=== PATIENT | female | born 1960 | race Caucasian/White ===

== ENCOUNTER → 2017-02-20 | Outpatient (CLI) | payer OTHER ==
--- NOTE | 2017-02-20 09:28 | RAD ---
Lumbar spine, 3 views, 02/20/2017: History: Lumbar pain radiating down both legs The lumbar vertebral heights are well-maintained. There are mild scattered marginal spurs. There is mild disc space narrowing and endplate sclerosis at L2-3. There are moderate degenerative changes involving the facet joints bilaterally in the lower lumbar spine. No acute fracture or dislocation is identified. Aortoiliac calcific plaquing is noted. IMPRESSION: 1. Mild to moderate degenerative change as described above. 2. No acute bony abnormality is detected.
== END | disposition home or self-care (01) ==
LOC: DXRADRC 08:47
PROVIDERS: ATTEND Physician Assistant Medical
DX: M47.896 Other spondylosis, lumbar region (principal); I70.0 Atherosclerosis of aorta
CPT/HCPCS: 72100

== ENCOUNTER → 2017-07-29 | Outpatient (CLI) | payer OTHER ==
--- NOTE | 2017-07-29 10:04 | RAD ---
Lumbar spine, 3 views, 07/29/2017: History: Low back pain No fracture or dislocation is identified. There are moderate scattered marginal spurs. There is mild disc space narrowing at L2-3. There are moderate degenerative changes involving the facet joints bilaterally in the lower lumbar spine. Moderate aortic calcific plaquing is present. IMPRESSION: 1. Mild to moderate scattered degenerative changes. 2. No acute bony abnormality is detected.
== END | disposition home or self-care (01) ==
LOC: DXRAD 09:23
PROVIDERS: ATTEND Neurological Surgery
DX: M47.816 Spondylosis without myelopathy or radiculopathy, lumbar region (principal)
CPT/HCPCS: 72100

== ENCOUNTER → 2017-08-21 | Outpatient (CLI) | payer OTHER ==
--- NOTE | 2017-08-21 11:07 | RAD ---
Chest, 2 views, 08/21/2017: History: Dry cough Comparison is made to a study from 05/13/2016. The heart size and pulmonary vascularity are normal. No pulmonary infiltrate is seen. There is no evidence of pleural fluid. IMPRESSION: No acute cardiopulmonary abnormality is detected.
== END | disposition home or self-care (01) ==
LOC: DXRAD 08:59
PROVIDERS: ATTEND Physician Assistant Medical
DX: R05 Cough (principal)
CPT/HCPCS: 71046

== ENCOUNTER 2018-04-10 10:50 | Emergency (ER) | payer OTHER ==
[~2018-04-10] VITALS: Ht 162.6 cm; Wt 93.0 kg
--- NOTE | 2018-04-10 11:32 | RAD ---
Two-view chest 04/10/2018 CLINICAL INDICATION: Shortness of breath and weakness. COMPARISON: Chest 08/21/2017 FINDINGS: Cardiac and mediastinal silhouettes unremarkable. No pleural effusion or pneumothorax. Minimal right upper lung airspace opacities. IMPRESSION: Minimal right upper lung airspace opacities, indeterminate between infectious or inflammatory pneumonitis. Follow-up two-view chest is recommended to assess for resolution. Electronically signed by: Vadim Abrams MD (04/10/2018 11:29 AM) [facility]
--- NOTE | 2018-04-10 11:39 | PHYS DOC ---
Past History Past Medical History: Asthma, Depression, Diabetes, Hypertension Past Surgical History: Hysterectomy, Other Alcohol Use: Heavy Drug Use: None Adult General Chief Complaint Chief Complaint: FLU SYMPTOM HPI HPI 58-year-old female presents with 5 day history of cough, congestion. She presents today because she's felt a little bit more short of breath. She denies chest pain or diaphoresis. She thought she just coming down with a cold, but this feels worse than a cold. She has body aches and is taking ibuprofen and tylenol. She has had pneumonia once in the past. She has not had a fever at home. She has been using her albuterol nebulizer 1-2 times a day. She did have some blood-tinged sputum with coughing yesterday. Review of Systems Review of Systems Constitutional: Denies fever or chills [] Eyes: Denies change in visual acuity, redness, or eye pain [] HENT: nasal congestion with mild sore throat [] Respiratory: cough with shortness of breath [] Cardiovascular: No additional information not addressed in HPI [] GI: Denies abdominal pain, nausea, vomiting, bloody stools or diarrhea [] : Denies dysuria or hematuria [] Musculoskeletal: Denies back pain or joint pain [] Integument: Denies rash or skin lesions [] Neurologic: Denies headache, focal weakness or sensory changes [] Endocrine: Denies polyuria or polydipsia [] All other systems were reviewed and found to be within normal limits, except as documented in this note. Allergies Allergies Allergies Coded Allergies Type Severity Reaction Last Updated Verified erythromycin base Allergy Unknown 04/10/18 Yes Physical Exam Physical Exam Constitutional: Well developed, well nourished, no acute distress, non-toxic appearance. [] HENT: Normocephalic, atraumatic, bilateral external ears normal, oropharynx moist, no oral exudates, nose normal. Bilateral tympanic membranes normal[] Eyes: PERRLA, EOMI, conjunctiva normal, no discharge. [] Neck: Normal range of motion, no tenderness, supple, no stridor. [] Cardiovascular:Heart rate regular rhythm, no murmur [] Lungs & Thorax: Bilateral breath sounds clear to auscultation [] Abdomen: Bowel sounds normal, soft, no tenderness, no masses, no pulsatile masses. [] Skin: Warm, dry, no erythema, no rash. [] Back: No tenderness, no CVA tenderness. [] Extremities: No tenderness, no cyanosis, no clubbing, ROM intact, no edema. [] Neurologic: Alert and oriented X 3, normal motor function, normal sensory function, no focal deficits noted. [] Psychologic: Affect normal, judgement normal, mood normal. [] Current Patient Data Vital Signs Vital Signs Date Time Temp Pulse Resp B/P (MAP) Pulse Ox O2 Delivery O2 Flow Rate FiO2 04/10/18 10:55 97.6 88 20 95 Room Air EKG EKG [] Radiology/Procedures Radiology/Procedures [] Impressions: Two-view chest 04/10/2018 CLINICAL INDICATION: Shortness of breath and weakness. COMPARISON: Chest 08/21/2017 FINDINGS: Cardiac and mediastinal silhouettes unremarkable. No pleural effusion or pneumothorax. Minimal right upper lung airspace opacities. IMPRESSION: Minimal right upper lung airspace opacities, indeterminate between infectious or inflammatory pneumonitis. Follow-up two-view chest is recommended to assess for resolution. Electronically signed by: Melyssa Abrams MD (04/10/2018 11:29 AM) [facility] DICTATED AND SIGNED BY: MELYSSA ABRAMS MD DATE: 04/10/18 1128 CC: REZA SOLER DO; EDGAR BENNETT Course & Med Decision Making Course & Med Decision Making Pertinent Labs and Imaging studies reviewed. (See chart for details) The patient's chest x-ray did show some upper lobe findings. See official report for more details. Her influenza A and B were both positive. The patient has had symptoms for 5 days so antiviral therapy is not indicated. She likely has not had a fever because she has been taking Tylenol and ibuprofen for body aches. She has albuterol nebulizer at home. Her oxygen saturation has been normal in the ED. She feels comfortable with discharge to home and will return to the emergency room if her condition worsens. [] Dragon Disclaimer Dragon Disclaimer This electronic medical record was generated, in whole or in part, using a voice recognition dictation system. Departure Departure: Referrals: EDGAR BENNETT (PCP) REZA SOLER DO Apr 10, 2018 11:39
[2018-04-10] MEDS ORDERED: IPRATRPIUM/ALBUTEROL 0.5/2.5MG 3 ML NEBU. NEB ONE (12:30)
[2018-04-10 12:50] LABS: INFLUENZA A PATIENT POSITIVE (NEGATIVE); INFLUENZA B PATIENT POSITIVE (NEGATIVE)
[2018-04-10 12:59] VITALS: BP 150/95
== END 2018-04-10 13:06 | disposition home or self-care (01) ==
LOC: ER 10:50
DX: J09.X2 Influenza due to identified novel influenza A virus with other respiratory manifestations (principal); J10.1 Influenza due to other identified influenza virus with other respiratory manifestations; J45.909 Unspecified asthma, uncomplicated; E11.9 Type 2 diabetes mellitus without complications; I10 Essential (primary) hypertension; F32.9 Major depressive disorder, single episode, unspecified; F10.20 Alcohol dependence, uncomplicated; Z88.1 Allergy status to other antibiotic agents; Y90.9 Presence of alcohol in blood, level not specified
CPT/HCPCS: 71046; 87804; 94640; 99284; J7620

== ENCOUNTER → 2018-04-22 | Outpatient (CLI) | payer OTHER ==
[2018-04-10 12:59] VITALS: BP 150/95
--- NOTE | 2018-04-22 15:58 | RAD ---
Left leg venous Doppler study: Clinical indications: Left leg swelling and pain. Findings: Duplex sonography (including santiago scale evaluation and color flow and waveform spectral analysis) of the proximal aspect of the greater saphenous vein and the proximal aspect of the profunda femoral vein and the entire length of the common femoral and superficial femoral and popliteal veins and the tibioperoneal trunk and the proximal aspect of the posterior tibial and peroneal veins of the left leg was performed. Normal compressibility, augmentation of color Doppler flow after calf compression, and respiratory variation of Doppler flow is seen. Thus, there are no sonographic findings of deep venous thrombosis within these veins. Impression: There are no sonographic findings of deep venous thrombosis within the veins discussed above of the left lower extremity. Right leg venous Doppler study: Clinical indications: Right leg swelling and pain. Findings: Duplex sonography (including santiago scale evaluation and color flow and waveform spectral analysis) of the proximal aspect of the greater saphenous vein and proximal aspect of the profunda femoral vein and the entire length of the common femoral and superficial femoral and popliteal veins and the tibioperoneal trunk and the proximal aspect of the posterior tibial and peroneal veins of the right leg was performed. Normal compressibility, augmentation of color Doppler flow after calf compression, and respiratory variation of Doppler flow is seen. Thus, there are no sonographic findings of deep venous thrombosis within these veins. Impression: There are no sonographic findings of deep venous thrombosis within the veins discussed above of the right lower extremity. VENOUS REFLUX EVALUATION OF THE LOWER EXTREMITIES-BILATERAL EXAM Right leg: No evidence of reflux of the lesser saphenous vein or greater saphenous vein is seen. There is an anterior accessory saphenous vein without reflux. These veins are patent. No thigh perforators are seen. No calf perforators are seen. Left leg: No evidence reflux of the lesser saphenous vein is seen. There is 1.1 seconds of reflux of the proximal left greater saphenous vein near the origin. No evidence of reflux elsewhere within this vein. An anterior accessory saphenous vein is seen without reflux. These veins are patent. No thigh perforators are seen. No calf perforators are seen. IMPRESSION: Reflux is evident within the proximal left greater saphenous vein near the origin. Electronically signed by: Leonel Vasquez MD (04/22/2018 3:55 PM) [place] [id number]
--- NOTE | 2018-04-23 10:31 | RAD ---
DATE: 04/22/2018 EXAM: MAMMO ASROJ SCREENING BILATERAL HISTORY: Routine screening COMPARISON: 10/30/2015 This study was interpreted with the benefit of Computerized Aided Detection (CAD). Breast Density: HETERO The breast parenchyma is heterogenously dense, which could reduce sensitivity of mammography. Breast parenchyma level C. FINDINGS: 2-D and 3-D tomosynthesis imaging was performed in CC and MLO projections. No new or enlarging breast densities are seen. Benign type calcifications are present. No suspicious microcalcifications have developed. IMPRESSION: Stable mammograms without evidence of malignancy. BI-RADS CATEGORY: 2 BENIGN FINDING(S) RECOMMENDED FOLLOW-UP: 12M 12 MONTH FOLLOW-UP PQRS compliance statement: Patient information was entered into a reminder system with a target due date for the next mammogram. Mammography is a sensitive method for finding small breast cancers, but it does not detect them all and is not a substitute for careful clinical examination. A negative mammogram does not negate a clinically suspicious finding and should not result in delay in biopsying a clinically suspicious abnormality. "Our facility is accredited by the [employer] Mammography Program."
== END | disposition home or self-care (01) ==
LOC: MAMMO 08:25
PROVIDERS: ATTEND Nurse Practitioner
DX: Z12.31 Encounter for screening mammogram for malignant neoplasm of breast (principal); R60.0 Localized edema
CPT/HCPCS: 77063; 77067; 93970

== ENCOUNTER → 2018-12-29 | Outpatient (CLI) | payer SELFPAY ==
--- NOTE | 2018-12-29 09:11 | RAD ---
Chest radiograph 12/29/2018 12:00 AM INDICATION: Chest pain COMPARISON: April 10, 2018 TECHNIQUE: Frontal and lateral views of the chest are provided. FINDINGS: The cardiomediastinal silhouette is within normal limits. There are no pleural effusions. There is no pulmonary vascular congestion. There is no pneumothorax. Mild interstitial changes appear chronic. Patchy opacities are noted in the right upper lobe which may represent chronic scarring or superimposed infiltrate. No significant osseous abnormality is identified. IMPRESSION: Chronic interstitial changes with right upper lobe patchy airspace disease. Consideration may be given for chronic scarring as similar findings are identified on prior radiographs versus superimposed infiltrate. Electronically signed by: Radha Lockwood MD (12/29/2018 9:08 AM) [id number]
== END | disposition home or self-care (01) ==
LOC: DXRAD 08:28
PROVIDERS: ATTEND Physician Assistant Medical
DX: J98.4 Other disorders of lung (principal)
CPT/HCPCS: 71046

== ENCOUNTER → 2019-05-04 | Outpatient (CLI) | payer OTHER ==
--- NOTE | 2019-05-04 15:26 | RAD ---
Five-view cervical spine series Clinical indications: Neck pain FINDINGS: No acute fracture or lytic process or discitis or prevertebral soft tissue swelling is evident. Grade 1 anterolisthesis of C4-5 is seen. Facet arthropathy is evident at this level. There is degenerative disc space narrowing and endplate spurring at at C4-5 and C5-6. There is degenerative endplate spurring without disc space narrowing at C3-4 and C6-7. There is narrowing of the lower left neural foramina which may be due to positioning. No prevertebral soft tissue swelling is evident. IMPRESSION: Degenerative cervical spondylosis. Grade 1 anterolisthesis of C4-5. This may result in spinal canal stenosis. Incidental note is made of bilateral lung infiltrates within the upper lobes. This appears chronic based on chest x-ray on December 29, 2018. Electronically signed by: Leonel Vasquez MD (05/04/2019 3:23 PM) [facility]
== END | disposition home or self-care (01) ==
LOC: PMG 09:28
PROVIDERS: ATTEND Physician Assistant Medical
DX: M43.12 Spondylolisthesis, cervical region (principal); M12.88 Other specific arthropathies, not elsewhere classified, other specified site; M47.812 Spondylosis without myelopathy or radiculopathy, cervical region; R91.8 Other nonspecific abnormal finding of lung field
CPT/HCPCS: 72050

== ENCOUNTER → 2019-06-28 | Day surgery (SDC) | payer OTHER ==
[~2019-06-28] MED LIST: ALBU2.5V8 INH; ALBUTEROL SULFATE 2.5 MG/3 ML NEBU. NEB PRN; ASPI-630 PO; ATEN25TA42 PO; ATOR20TA58 PO; ATROPINE 0.5 MG/5 ML DISP.SYRIN. IV PRN; BUDE10.2 IH; CHOL400T6 PO; CITA40TA5 PO; CYAN50008 PO; DEXT20TA2 PO; HYDR-2769 PO; HYDR12.58 PO; IV RINGERS SOLUTION,LACTATED 1,000 ML IV SCH; LORA10CA PO; LOSA50TA86 PO; METF-550 PO; METF-551 PO; MONT10TA80 PO; OMEP20CA16 PO; ONDANSETRON PF 4 MG/2 ML VIAL. IV PRN; PHENOL ORAL SPRAY 177ML BOTTLE. MM PRN; PROPOFOL 40 ML IV ONE; diphenhydrAMINE 50 MG/ML VIAL IV PRN
[2019-06-28 10:35] VITALS: BP 99/68
== END ==
LOC: SURG 08:24
PROVIDERS: ATTEND Internal Medicine Gastroenterology
DX: R19.4 Change in bowel habit (principal); K57.30 Diverticulosis of large intestine without perforation or abscess without bleeding; Z80.0 Family history of malignant neoplasm of digestive organs; Z86.010 Personal history of colon polyps; Z88.1 Allergy status to other antibiotic agents; Z88.8 Allergy status to other drugs, medicaments and biological substances
CPT/HCPCS: 45378; J2704; J7120

== ENCOUNTER → 2019-11-24 | Outpatient (CLI) | payer OTHER ==
[2019-06-28 10:35] VITALS: BP 99/68
[~2019-11-24] MED LIST changes: -ALBUTEROL SULFATE 2.5 MG/3 ML NEBU. NEB PRN; -ATROPINE 0.5 MG/5 ML DISP.SYRIN. IV PRN; -IV RINGERS SOLUTION,LACTATED 1,000 ML IV SCH; -ONDANSETRON PF 4 MG/2 ML VIAL. IV PRN; -PHENOL ORAL SPRAY 177ML BOTTLE. MM PRN; -PROPOFOL 40 ML IV ONE; -diphenhydrAMINE 50 MG/ML VIAL IV PRN
--- NOTE | 2019-11-24 09:44 | RAD ---
EXAM: Bilateral lower extremity venous Doppler. HISTORY: Bilateral lower extremity pain/swelling. COMPARISON: None. FINDINGS: Grayscale and Doppler analysis of the both lower extremity deep venous systems was performed with graded compression and augmentation. The common femoral, greater saphenous, superficial femoral, popliteal and calf veins were assessed. There is no evidence of deep venous thrombosis. IMPRESSION: 1. No evidence of deep venous thrombosis. Electronically signed by: Lilly Perez MD (11/24/2019 9:41 AM) [id number]
== END ==
LOC: US 08:50
PROVIDERS: ATTEND Physician Assistant Medical
DX: R60.9 Edema, unspecified (principal); M79.605 Pain in left leg; M79.604 Pain in right leg
CPT/HCPCS: 93970

== ENCOUNTER → 2020-01-16 | Outpatient (CLI) | payer OTHER ==
[2019-06-28 10:35] VITALS: BP 99/68
--- NOTE | 2020-01-16 17:16 | RAD ---
CT chest without contrast: Reason for examination: Productive cough for years. 30+ years smoking history. Asthma/COPD. Helical images were obtained through the chest with no contrast administered. Reconstruction was performed in sagittal and coronal planes. Exposure: One or more of the following individualized dose reduction techniques were utilized for this examination: 1. Automated exposure control 2. Adjustment of the mA and/or kV according to patient size 3. Use of iterative reconstruction technique. No abnormality seen at the thyroid gland. The trachea and mainstem bronchi show no intraluminal lesions. No abnormality seen at the esophagus. The thoracic aorta shows some arteriosclerotic calcification. The heart size is normal with no pericardial effusion. Lung an show patchy groundglass changes in the upper lobes bilaterally and there are small emphysematous bulla present. There is a 1.6 cm focus of infiltrates or nodule at the right lower lobe posteriorly (series 2, image 160). No other infiltrates or nodules are seen. No pleural effusions or pneumothorax are seen. No focal abnormalities are seen at the portions of the liver, spleen or adrenal glands visualized. No acute bony abnormality is seen. IMPRESSION: Mild hazy groundglass density in the upper lobes bilaterally with small emphysematous bulla. Small 1.6 m focus of infiltrate or nodule in the right lower lobe posteriorly. Recommend clinical correlation and follow-up. Electronically signed by: Wen Guido MD (01/16/2020 5:13 PM) [facility]
== END | disposition home or self-care (01) ==
LOC: CT 10:56
PROVIDERS: ATTEND Physician Assistant Medical
DX: J43.8 Other emphysema (principal); I70.0 Atherosclerosis of aorta
CPT/HCPCS: 71250

== ENCOUNTER → 2020-06-18 | Outpatient (CLI) | payer OTHER ==
[2019-06-28 10:35] VITALS: BP 99/68
[~2020-06-18] MED LIST changes: -METF-550 PO; -METF-551 PO; +METF-638 PO; +METF-639 PO
--- NOTE | 2020-06-19 08:21 | RAD ---
PQRS Compliance Statement: One or more of the following individualized dose reduction techniques were utilized for this examinat ion: 1. Automated exposure control 2. Adjustment of the mA and/or kV according to patient size 3. Use of iterative reconstruction technique CT THORAX WO Clinical Indication: Reason: LUNG NODULE / Comparison: CT chest without contrast, January 16, 2020. TECHNIQUE: Helical CT imaging of the chest is performed without IV contrast. Findings: The thyroid is symmetric. There is no axillary adenopathy. Mild mediastinal adenopathy is unchanged. Limited evaluation of the sara without IV contrast. The pulmonary trunk is dilated measuring up to 3. 7 cm. There is coronary artery disease. There is ectasia of the ascending thoracic aorta, diameter 3. 8 cm. Cardiac size is normal, no pericardial effusion. There is no pleural effusion. The central airways are patent. There is moderate upper lobe centrilobu lar emphysema. There is new groundglass and reticular opacity in the posterior right upper lobe. Grou ndglass nodule in the posterior right lower lobe is unchanged, image 159. Reticular opacities in the superior segment of the right lower lobe are unchanged. There is a new soft tissue density nodule in the left upper lobe measuring 6 x 5 mm, image 63. The visualized upper abdomen is unremarkable. There is segmentation anomaly with a rudimentary disc space of T2-T3. There is grade 1 anterolisthesi s of T3 on T4. IMPRESSION: 1. Irregular groundglass nodule in the posterior right lower lobe is unchanged and may be due to sca rring. There are upper lobe predominant chronic interstitial changes. Moderate centrilobular emphysem a. 2. There is a new noncalcified solid nodule in the left upper lobe measuring [address] foll ow-up. 3. Mild mediastinal adenopathy is unchanged. 4. Pulmonary trunk is dilated suggesting pulmonary arterial hypertension. Electronically signed by: Hany Moraes MD (06/19/2020 8:19 AM) [id number]
== END ==
LOC: CT 09:28
PROVIDERS: ATTEND Internal Medicine Critical Care Medicine
DX: J43.2 Centrilobular emphysema (principal); I77.810 Thoracic aortic ectasia; R91.1 Solitary pulmonary nodule; J98.4 Other disorders of lung; I25.10 Atherosclerotic heart disease of native coronary artery without angina pectoris
CPT/HCPCS: 71250

== ENCOUNTER → 2020-07-05 | Outpatient (CLI) | payer OTHER ==
[2019-06-28 10:35] VITALS: BP 99/68
[2020-07-05 13:38] LABS: BASO % 0 % (0-3); EOS # 0.2 x10^3/uL (0.0-0.7); EOS % 2 % (0-3); HEMATOCRIT 40.8 % (36.0-47.0); HEMOGLOBIN 13.4 g/dL (12.0-15.5); LYMPH # 1.9 x10^3/uL (1.0-4.8); LYMPH % 24 % (24-48); MEAN CORPUSCULAR HEMOGLOBIN 29 pg (25-35); MEAN CORPUSCULAR HGB CONC 33 g/dL (31-37); MEAN CORPUSCULAR VOLUME 89 fL (79-100); MONO # 0.6 x10^3/uL (0.0-1.1); MONO % 8 % (0-9); NEUT # 5.1 x10^3uL (1.8-7.7); NEUT % 66 % (31-73); PLATELET COUNT 116 x10^3/uL (140-400); RED CELL DISTRIBUTION WIDTH 14.9 % (11.5-14.5); WHITE BLOOD COUNT 7.8 x10^3/uL (4.0-11.0)
[2020-07-05 13:50] LABS: ALBUMIN 3.7 g/dL (3.4-5.0); ALBUMIN/GLOBULIN RATIO 0.9 (1.0-1.7); CALCIUM 9.2 mg/dL (8.5-10.1); CREATININE 0.7 mg/dL (0.6-1.0); GFR 85.1; TOTAL BILIRUBIN 0.3 mg/dL (0.2-1.0)
== END ==
LOC: LAB 11:54
PROVIDERS: ATTEND Neurological Surgery
DX: M51.36 Other intervertebral disc degeneration, lumbar region (principal); M48.061 Spinal stenosis, lumbar region without neurogenic claudication; M47.816 Spondylosis without myelopathy or radiculopathy, lumbar region; M43.17 Spondylolisthesis, lumbosacral region
CPT/HCPCS: 36415; 80053; 85025

== ENCOUNTER 2020-08-18 01:14 | Emergency (ER) | payer MEDICARE, OTHER ==
[~2020-08-18] VITALS: Ht 162.6 cm; Wt 82.7 kg
--- NOTE | 2020-08-18 01:18 | PHYS DOC ---
Past History Past Medical History: Anxiety, Arthritis, Asthma, Bronchitis, COPD, Depression, Diabetes, Hypertension, Sciatica, UTI Past Surgical History: Hysterectomy, Lumbar Laminectomy, Other Smoking: Quit Greater Than 1 Year Alcohol Use: Heavy Drug Use: None General Adult HPI: HPI: ".. I was at the doctor office today...[facility] for a follow up of my back surgery 07/25.. at [place]... I did have a UTI there and some urosepsis... They felt it because I never... Got a UTI completely treated... But they said I might have a UTI today... But tonight felt like maybe I had a fever ...".." I also had a blood clott.. in my lungs. and pneumonia.. ,.. so I also on Xarelto... Now too..." Patient is a 60 year old female who presents with above hx and complaints of dysuria, malaise, fever, chills, and arthralgia. Patient had lumbar laminectomy with fixation on July 25 at [place]. Patient was discharged home on the after the laminectomy after a couple days. Patient returned to [place] on the and diagnosed with urosepsis, pneumonia, pulmonary embolism and urinary tract infection. Patient was then admitted from to the at that time she required pressor to maintain blood pressure. Patient discharged on the and followed up with [facility] today and at that time is felt that maybe she may have a recurrent UTI. No antibiotics started at that time. The urine was sent for culture. Since seeing rash today patient developed fever ,chills, malaise, hypotension, and tachycardia. Pt. follows with [facility] for primary care. Patient was last admitted at [place] under . Patient states she still has some sciatica. Has had some leg cramps and left leg. Patient has been compliant with all her meds including Xarelto. Patient is accompanied with her daughter. Patient denies any recent travel. No specific ill contacts. No history immunosuppression. Patient lumbar laminectomy scar appears to be well- healed and no inflammation. Patient has past medical history significant for asthma, chronic bronchitis, COPD/emphysema, O2 dependent at 2 L nasal cannula, depression, diabetes, hypertension, pneumonia, UTIs, urosepsis, pulmonary embolism, and anxiety. Review of Systems: Review of Systems: Constitutional: History of fever or chills Eyes: Denies change in visual acuity HENT: Denies nasal congestion or sore throat Respiratory: History of a nonproductive cough . Cardiovascular: Denies chest pain or edema GI: Denies abdominal pain, nausea, vomiting, bloody stools or diarrhea : Denies dysuria Musculoskeletal: History of chronic back pain and joint pain Integument: Denies rash Neurologic: Denies headache, focal weakness or sensory changes Endocrine: Denies polyuria or polydipsia Lymphatic: Denies swollen glands Psychiatric: History of depression and anxiety Family History: Family History: Noncontributory to presentation Current Medications: Current Meds: See nursing for home meds Allergies: Allergies: Allergies Coded Allergies Type Severity Reaction Last Updated Verified erythromycin base Allergy Unknown 04/10/18 Yes Physical Exam: PE: Constitutional: acute distress, ill in appearance. [] HENT: Normocephalic, atraumatic, bilateral external ears normal, oropharynx moist, no oral exudates, nose normal. [] Eyes: PERRLA, EOMI, conjunctiva normal, no discharge. [] Neck: Normal range of motion, no tenderness, supple, no stridor. [] Cardiovascular: Tachycardia heart rate regular rhythm, no murmur, PMI to the left Lungs & Thorax: Bilateral breath sounds equal apex with few scattered wheezes some bibasilar crackles on auscultation [] Abdomen: Bowel sounds normal, soft, no tenderness, liver edge, no pulsatile masses. Obese. Pannus. Skin: Warm, dry, no erythema, no rash. Poor turgor Back: No tenderness, no CVA tenderness. Healing lumbar laminectomy scar-no signs of infection or inflammation Extremities: No tenderness, no cyanosis, no clubbing, ROM intact, bilateral edema. [] Piero complains of left calf cramping. No cording appreciated Neurologic: Alert and oriented X 3, moves all extremities on request, does have distal sensory,, no gross focal deficits noted, daughter says patient mentation is at baseline Psychologic: Affect anxious, judgement normal, mood normal. [] EKG: EKG: My interpretation EKG shows a sinus tachycardia 100 bpm. No findings of acute STEMI [] Radiology/Procedures: Radiology/Procedures: [address] [address] IMAGING REPORT Signed PATIENT: TORITO URIARTE ACCOUNT: [id number] : 1960 LOCATION: ER AGE: 60 SEX: F EXAM STATUS: REG ER ORD. PHYSICIAN: REYNALDO KRAUS MD REASON: post central line placement PROCEDURE: CHEST AP ONLY XR CHEST 1V Clinical Indication: Reason: post central line placement Comparison: Two-view chest, prior day. Findings: There is right IJ central line, tip at superior atriocaval junction. The cardiomediastinal silhouette is normal. Diffuse interstitial opacities are unchanged. There is no pneumothorax. No pleural effusion is appreciated. No acute bone abnormality. IMPRESSION: Right IJ central line tip at superior atrial caval junction. Electronically signed by: Hany Moraes MD (08/18/2020 5:14 AM) [facility]ANEL[facility] DICTATED AND SIGNED BY: HANY MORAES MD DATE: 08/18/20512 CC: REYNALDO KRAUS MD; EDGAR BENNETT PA ~MTH0 0 [][address] [place] [id number] IMAGING REPORT Signed PATIENT: TORITO URIARTE ACCOUNT: [id number] : 1960 LOCATION: ER AGE: 60 SEX: F EXAM STATUS: REG ER ORD. PHYSICIAN: REYNALDO KRAUS MD REASON: fever, copd PROCEDURE: CHEST PA & LATERAL XR CHEST 2V History: Reason: fever, copd / Comparison: Two-view chest December 29, 2018. Findings: The cardiomediastinal silhouette is normal. Interstitial opacities are nearly identical to the prior study and probably represent chronic interstitial changes. No acute airspace disease is identified. No pleural effusion or pneumothorax is seen. There is no acute bone abnormality. IMPRESSION: Probable chronic interstitial changes, stable to prior study. Electronically signed by: Hany Moraes MD (08/18/2020 4:04 AM) [facility] DICTATED AND SIGNED BY: HANY MORAES MD DATE: 08/18/20402 CC: REYNALDO KRAUS MD; EDGAR BENNETT ~MTH0 0 Heart Score: C/O Chest Pain: N/A HEART Score for Chest Pain: HEART Score for Chest Pain Response (Comments) Value History Moderately Suspicious 1 ECG Nonspecific Repolarizatio 1 Age >45 - < 65 1 Risk Factors 1 or 2 Risk Factors 1 Troponin < Normal Limit 0 Total 4 Risk Factors: Risk Factors: DM, Current or recent (<one month) smoker, HTN, HLP, family history of CAD, obesity. Risk Scores: Score 0 - 3: 2.5% MACE over next 6 weeks - Discharge Home Score 4 - 6: 20.3% MACE over next 6 weeks - Admit for Clinical Observation Score 7 - 10: 72.7% MACE over next 6 weeks - Early Invasive Strategies Course & Med Decision Making: Course & Med Decision Making Pertinent Labs and Imaging studies reviewed. (See chart for details) Concern for Sirs/ Sepsis- tachycardia, hypotension, Bands 29, and elevated lactic acid 3.9 . . Discussed hx., presentation, testing and tx. plan with Dr. Del Cid. Advised he would not admit her at this time.. Advised to send her home on oral antibiotics. 4:00 Family very concerned and wished to be transfer to [facility]- Discussed presentation, hx., testing, and tx. plan with Dr. Lucrecia Phelps at [place]- she has agreed to accept pt.at [place]. Procedure note: Central line placement-frequent IV draws, pressors, persistent hypotension after 2 L of fluid and low map. Discussed risk and benefits both patient and daughter. Patient daughter stated she had a central before when she needed pressors with last admission. Were aware of the risks excessive bleeding in anticoagulated patient, infection, pneumothorax etc. The right IJ . Prepped with prep swab-use of sterile technique, hat mask gloves gown, draping. Patient placed in Trendelenburg position. Received total lidocaine at sites of 6 cc both subclavian and IJ. Right IJ cannulated and central line passed over wire. Return of venous blood all 3 ports. Line sutured in place with Biopatch and OpSite. OpSite replaced after x-ray. No obvious pneumothorax noted on x-ray post procedure. Levophed started through central line and IV fluids. Critical care time 90 minutes-excluding procedures Impression: 1. UTI 2. Fever and Chills 3. Elevated Lactic Acid 3.9 4. Hx PE- on Xarelto 5. Hx. Lumbar laminectomy and fixation- 6. Hx Pneumonia 7. Hx laminectomy on July 25 8. Hx. of sepsis with UTI on readmission July 31- August 07 9. Suspect SIRS/ Sepsis [] Dragon Disclaimer: Dragon Disclaimer: This electronic medical record was generated, in whole or in part, using a voice recognition dictation system. Departure Departure: Referrals: EDGAR BENNETT (PCP) [place] Disclaimer This chart was dictated in whole or in part using Voice Recognition software in a busy, high-work load, and often noisy Emergency Department environment. It may contain unintended and wholly unrecognized errors or omissions. Dragon Disclaimer This chart was dictated in whole or in part using Voice Recognition software in a busy, high-work load, and often noisy Emergency Department environment. It may contain unintended and wholly unrecognized errors or omissions. REYNALDO KRAUS MD Aug 18, 2020 01:18
[2020-08-18] MEDS ORDERED: IV RINGERS SOLUTION,LACTATED 1,000 ML IV SCH (01:45)
--- NOTE | 2020-08-18 02:08 | EKG ---
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
[2020-08-18 02:32] LABS: BACTERIA,URINE FEW /HPF (0-FEW); BILIRUBIN,URINE NEG (NEG); CLARITY,URINE HAZY; COLOR,URINE YELLOW; GLUCOSE,URINE NEG (NEG); NITRITE,URINE NEG (NEG); RBC,URINE 0 /HPF (0-2); SQUAMOUS EPITHELIAL CELL,UR FEW /LPF; UROBILINOGEN,URINE 0.2 mg/dL (0.2 mg/dL)
[2020-08-18 02:39] LABS: GFR 56.4; POTASSIUM 3.3 mmol/L (3.5-5.1)
[2020-08-18] MEDS ORDERED: ALBU2.5V14 NEB (02:53)
[2020-08-18] MEDS ORDERED: CYCL-331 PO (02:53)
[2020-08-18] MEDS ORDERED: ALPR0.5T6 PO (02:53)
[2020-08-18] MEDS ORDERED: LEVO5TAB29 PO (03:02)
[2020-08-18] MEDS ORDERED: DICL50TA4 PO (03:02)
[2020-08-18] MEDS ORDERED: FLUT16SP21 NS (03:02)
[2020-08-18] MEDS ORDERED: METF10007 PO (03:02)
[2020-08-18] MEDS ORDERED: FLUT1BLS15 IH (03:02)
[2020-08-18] MEDS ORDERED: medrol dose pack (03:02)
[2020-08-18] MEDS ORDERED: IBUP800T19 PO (03:02)
[2020-08-18] MEDS ORDERED: MELO15TA6 PO (03:02)
[2020-08-18] MEDS ORDERED: HYDR-2145 PO (03:02)
[2020-08-18] MEDS ORDERED: cefTRIAXone SODIUM 1 GM VIAL ONE (03:06)
[2020-08-18] MEDS ORDERED: IV NORMAL SALINE 50ML 50 ML ONE (03:06)
[2020-08-18 03:15] LABS: BASO % 0 % (0-3); EOS % 1 % (0-3); HEMATOCRIT 35.5 % (36.0-47.0); HEMOGLOBIN 11.5 g/dL (12.0-15.5); LYMPH # 0.1 x10^3/uL (1.0-4.8); LYMPH % 4 % (24-48); MEAN CORPUSCULAR HEMOGLOBIN 28 pg (25-35); MEAN CORPUSCULAR HGB CONC 33 g/dL (31-37); MEAN CORPUSCULAR VOLUME 86 fL (79-100); MONO # 0.1 x10^3/uL (0.0-1.1); MONO % 2 % (0-9); NEUT # 3.5 x10^3uL (1.8-7.7); NEUT % 94 % (31-73); PLATELET COUNT 148 x10^3/uL (140-400); RED BLOOD COUNT 4.12 x10^6/uL (3.50-5.40); RED CELL DISTRIBUTION WIDTH 14.2 % (11.5-14.5); WHITE BLOOD COUNT 3.7 x10^3/uL (4.0-11.0)
[2020-08-18] MEDS ORDERED: KETOROLAC 30 MG/ML VIAL. IVP ONE (03:45)
[2020-08-18] MEDS ORDERED: MORPHINE SULFATE 10 MG/ML SYRINGE. SQ ONE (03:45)
[2020-08-18] MEDS ORDERED: MORPHINE SULFATE 10 MG/ML SYRINGE. ONE (03:47)
[2020-08-18] MEDS ORDERED: LORazepam 1 MG TABLET ONE (03:47)
[2020-08-18 03:55] LABS: % ATYL 1 % (0-0); % BANDS 29 % (0-9); % LYMPHS 4 % (24-48); % SEGS 66 % (35-66); NUCLEATED RBC 0; PLT ESTIMATE ADEQUATE (ADEQUATE)
[2020-08-18] MEDS ORDERED: LORazepam 1 MG TABLET PO ONE (04:00)
--- NOTE | 2020-08-18 04:06 | RAD ---
XR CHEST 2V History: Reason: fever, copd / Comparison: Two-view chest December 29, 2018. Findings: The cardiomediastinal silhouette is normal. Interstitial opacities are nearly identical to the prior study and probably represent chronic interstitial changes. No acute airspace disease is identified. N o pleural effusion or pneumothorax is seen. There is no acute bone abnormality. IMPRESSION: Probable chronic interstitial changes, stable to prior study. Electronically signed by: Hany Moraes MD (08/18/2020 4:04 AM) [facility]
[2020-08-18] MEDS ORDERED: IV RINGERS SOLUTION,LACTATED 1,000 ML IV ONE ×2 (04:15→05:00)
[2020-08-18 04:50] VITALS: BP 72/44
[2020-08-18] MEDS ORDERED: VANCOMYCIN 1 GM VIAL. ONE (05:00)
[2020-08-18] MEDS ORDERED: VANCOMYCIN 1 GM in IV NORMAL SALINE 250ML 250 ML IV ONE (05:00)
[2020-08-18] MEDS ORDERED: NOREPINEPHRINE BITARTRATE 8 MG in IV DEXTROSE 5% 250 ML IV PRN ×2 (05:00→10:00)
[2020-08-18] MEDS ORDERED: IV NORMAL SALINE 250ML 250 ML ONE ×2 (05:00→05:08)
[2020-08-18] MEDS ORDERED: NOREPINEPHRINE BITARTRATE 4 MG/4 ML VIAL. IV ONE (05:05)
[2020-08-18] MEDS ORDERED: IV DEXTROSE 5% 250 ML IV ONE (05:07)
[2020-08-18] MEDS ORDERED: NOREPINEPHRINE BITARTRATE 8 MG in IV NORMAL SALINE 250ML 250 ML IV PRN (05:15)
--- NOTE | 2020-08-18 05:17 | RAD ---
XR CHEST 1V Clinical Indication: Reason: post central line placement Comparison: Two-view chest, prior day. Findings: There is right IJ central line, tip at superior atriocaval junction. The cardiomediastinal silhouette is normal. Diffuse interstitial opacities are unchanged. There is no pneumothorax. No pleural effusi on is appreciated. No acute bone abnormality. IMPRESSION: Right IJ central line tip at superior atrial caval junction. Electronically signed by: Hany Moraes MD (08/18/2020 5:14 AM) [facility]
[2020-08-18 05:22] LABS: INFLUENZA A PATIENT NEGATIVE (NEGATIVE); INFLUENZA B PATIENT NEGATIVE (NEGATIVE)
== END 2020-08-18 06:30 | disposition short-term general hospital (02) ==
LOC: ER 01:14
DX: N39.0 Urinary tract infection, site not specified (principal); Z20.822 Contact with and (suspected) exposure to COVID-19; R50.9 Fever, unspecified; R74.02 Elevation of levels of lactic acid dehydrogenase [LDH]; Z86.711 Personal history of pulmonary embolism; Z79.01 Long term (current) use of anticoagulants; J44.9 Chronic obstructive pulmonary disease, unspecified; E11.9 Type 2 diabetes mellitus without complications; I10 Essential (primary) hypertension; Z87.891 Personal history of nicotine dependence; Z88.1 Allergy status to other antibiotic agents
CPT/HCPCS: 36415; 71045; 71046; 80048; 81001; 83605; 85007; 85025; 87040; 87077; 87086; 87186; 87804; 93005; 96361; 96365; 96367; 96368; 96372; 96375; 99291; 99292; C9803; J0696; J1885; J2270; J3370; J7050; J7120; U0003; U0005; 99285-25

== ENCOUNTER 2020-09-15 10:27 | Inpatient (IN) | payer OTHER ==
[~2020-09-15] VITALS: Ht 162.6 cm; Wt 79.5 kg
[~2020-09-15 10:27] MED LIST changes: +ALBU2.5V14 NEB; +ALPR0.5T6 PO; +CYCL-331 PO; +DICL50TA4 PO; +FLUT16SP21 NS; +FLUT1BLS15 IH; +HYDR-2145 PO; +IBUP800T19 PO; +LEVO5TAB29 PO; +MELO15TA6 PO; +METF10007 PO; +medrol dose pack
--- NOTE | 2020-09-15 10:51 | PHYS DOC ---
Past History Past Medical History: Anxiety, Arthritis, Asthma, Bronchitis, COPD, Depression, Diabetes, Hypertension, Sciatica, UTI Additional Past Medical Histor: shingles; PE; lumbar stenosis; spondy losis;sepsis Past Surgical History: Hysterectomy, Lumbar Laminectomy, Other Additional Past Surgical Histo: lumbar fusion Smoking: Quit Greater Than 1 Year Alcohol Use: Heavy Drug Use: None General Adult EDM: Chief Complaint: MULTIPLE COMPLAINTS HPI: HPI: 60 yo F past medical history of lumbar fusion in July 2020, complicated PE on Xarelto, COPD, arthritis, and SAWYER w/cpap at night, presents to the ed with complaints of generalized weakness and shortness of breath stating she felt like this when she was discharged from [facility], was admitted for sepsis. Reports she is currently taking Augmentin but does not know why. Patient states her symptoms do not typically resemble her COPD. Was around her daughter the day before her daughter was admitted to [facility], 1 week ago for viral pneumonia (unsure if daughter had Covid). Patient reports history of Covid in March 2020 and has not been vaccinated due to medical reasons. Low back surgery in July was complicated by sepsis with pneumonia and pulmonary emboli. Patient is compliant with her Xarelto but was discharged from [facility] on August 22, s/p sepsis 2/2 UTI (was usually seen in [facility] emergency department and started on Levophed). Hx given from pt and from reviewed [facility] medical records. Review of Systems: Review of Systems: Constitutional: Denies fever or chills Eyes: Denies change in visual acuity HENT: Denies nasal congestion or sore throat Respiratory: Denies cough or shortness of breath Cardiovascular: Denies chest pain or edema GI: Denies abdominal pain, nausea, vomiting, bloody stools or diarrhea : Denies dysuria Musculoskeletal: Denies back pain or joint pain Integument: Denies rash Neurologic: Denies headache, focal weakness or sensory changes Endocrine: Denies polyuria or polydipsia Lymphatic: Denies swollen glands Psychiatric: Denies depression or anxiety Current Medications: Current Meds: Current Medications Medications (Trade) Dose Ordered Sig/Cristy Start Time Stop Time Status Last Admin Dose Admin Piperacillin Sod/ Tazobactam Sod 4.5 gm/Sodium Chloride 50 ml @ 100 mls/hr 1X ONCE 09/15/20 11:00 09/15/20 11:29 UNV Sodium Chloride 1,000 ml @ 1,000 mls/hr 1X ONCE 09/15/20 11:00 09/15/20 11:59 UNV Vancomycin HCl (Vanco Per Pharmacy) 1 each PRN DAILY PRN 09/15/20 11:00 UNV Allergies: Allergies: Allergies Coded Allergies Type Severity Reaction Last Updated Verified erythromycin base Allergy Unknown 08/18/20 Yes levofloxacin Adverse Reaction Intermediate nausea, vomiting, diarrhea 08/18/20 Yes nitrofurantoin Adverse Reaction Intermediate n/v/d 08/18/20 Yes Physical Exam: PE: Constitutional: Well developed, well nourished, no acute distress, non-toxic appearance. HENT: Normocephalic, atraumatic, Eyes: EOMI, conjunctiva normal, no discharge. Neck: Normal range of motion, supple, Cardiovascular: S1/2 present, regular rhythm Lungs & Thorax: Speaking in full sentences, bilateral equal chest rise, no tachypnea or increased work of breathing, on 5L NC Abdomen: soft, no tenderness, Skin: Warm, dry, no erythema, no rash. [] Back: No tenderness, no CVA tenderness. [] Extremities: No tenderness, no cyanosis, no lower extremity edema Neurologic: Alert and oriented X 3, normal motor function, normal sensory function, no focal deficits noted. [] Psychologic: Affect normal, judgement normal, mood normal. [] EKG: EKG: [] Sinus tachycardia 103 bpm, no axis deviation, prolonged QTC 492, no T wave inversions, no ST elevations or ST depressions Radiology/Procedures: Radiology/Procedures: IMAGING REPORT Signed PATIENT: TORITO URIARTE ACCOUNT: [id number] : 1960 LOCATION: ER AGE: 60 SEX: F EXAM STATUS: REG ER ORD. PHYSICIAN: EDGAR MOYER DO REASON: soa PROCEDURE: PORTABLE CHEST 1V Exam Date: 09/15/2020 10:54 AM XR CHEST 1V Indication: Reason: soa / Spl. Instructions: / History: Comparison: August 18, 2020 FINDINGS/ IMPRESSION: The cardiac silhouette is unchanged. Prominent interstitial markings are seen bilaterally suggesting interstitial edema. Bibasilar edema, atelectasis, and/or infiltrates are noted. No appreciable pleural effusion or pneumothorax. Electronically signed by: Husam Tolliver MD (09/15/2020 11:15 AM) [id number] DICTATED AND SIGNED BY: HUSAM TOLLIVER MD DATE: 09/15/20 1112 CC: EDGAR BENNETT; EDGAR MOYER DO ~MTH0 0 IMAGING REPORT Signed PATIENT: TORITO URIARTE ACCOUNT: [id number] : 1960 LOCATION: ER AGE: 60 SEX: F EXAM STATUS: REG ER ORD. PHYSICIAN: EDGAR MOYER DO REASON: soa, r/o pe PROCEDURE: CT ANGIOGRAPHY CHEST CTA Chest with contrast: Clinical History: Reason: soa, r/o pe / Spl. Instructions: OMNI 350 98ML IV, GFR>60 / History: Shortness of breath. Axial helical images of the chest were obtained after the administration of 98 cc of IV Omni 350 and timed appropriately for a pulmonary arterial study. Conventional axial reconstruction was performed in addition to coronal, sagittal and bilateral oblique MIP (maximum intensity projection). This study was ordered to detect possible pulmonary embolism. There are no filling defects to suggest pulmonary embolism. There is diffuse emphysematous changes throughout the lungs. There is patchy mixed interstitial and airspace disease posteriorly in the lungs bilaterally. There is a 11 mm pulmonary nodule left upper lobe abutting the pleura laterally. There are multiple mildly enlarged mediastinal and hilar lymph nodes. The spleen is mildly enlarged. The thoracic aorta appears normal. Impression: 1. No evidence of pulmonary embolism. 2. Mixed interstitial and airspace disease posteriorly. This has increased considerably since June 18, 2020 CT. This could be secondary to atypical pneumonia. 3. Mild to moderate worsening lymphadenopathy. Consider sarcoidosis. 1. Mild splenomegaly seen previously. End impression PQRS Compliance Statement: One or more of the following individualized dose reduction techniques were utilized for this examination: 1. Automated exposure control 2. Adjustment of the mA and/or kV according to patient size 3. Use of iterative reconstruction technique Electronically signed by: Leandro Austin III, MD (09/15/2020 1:44 PM) [facility] DICTATED AND SIGNED BY: LEANDRO AUSTIN III, MD DATE: 09/15/20 1338 CC: EDGAR BENNETT; EDGAR MOYER DO ~MTH0 0 Heart Score: C/O Chest Pain: No Risk Factors: Risk Factors: DM, Current or recent (<one month) smoker, HTN, HLP, family history of CAD, obesity. Risk Scores: Score 0 - 3: 2.5% MACE over next 6 weeks - Discharge Home Score 4 - 6: 20.3% MACE over next 6 weeks - Admit for Clinical Observation Score 7 - 10: 72.7% MACE over next 6 weeks - Early Invasive Strategies Course & Med Decision Making: Course & Med Decision Making Pertinent Labs and Imaging studies reviewed. (See chart for details) COVID-19 CRITERIA: The patient was evaluated during the global COVID-19 pandemic, and that diagnosis was suspected/considered upon their initial presentation. Their evaluation, treatment and testing was consistent with current guidelines for patients who present with complaints or symptoms that may be related to COVID-19. Concern for hypoxia in the setting of atypical pneumonia vs mild interstitial edema, no further PE on CTA. Covid test pending. Patient was started on broad- spectrum antibiotics. Will admit for further medical management. Patient stable time of admission and agrees with this plan, accepted by Dr. Del Cid. Patient may benefit from echocardiogram. Large stack of medical records were faxed over from [facility]-patient is unsure if she had echocardiogram there. I have spoken with the patient and/or caregivers. I have explained the patient's condition, diagnosis and treatment plan based on the information available to me at this time. I have answered the patient's and/or caregivers questions and answered any concerns. The patient and/or caregivers have as good an understanding of the patient's diagnosis, condition and treatment plan as can be expected at this point. The patient has been stabilized within the capability of the emergency department. The patient will be transported for further care and management or will be moved to an observation or inpatient service. I have communicated with the staff or medical practitioner taking over this patient's care. Dragon Disclaimer: Dragon Disclaimer: This electronic medical record was generated, in whole or in part, using a voice recognition dictation system. Departure Departure: Impression: Primary Impression: Dyspnea Additional Impressions: Hypoxemia requiring supplemental oxygen Person under investigation for COVID-19 Atypical pneumonia Disposition: 09 ADMITTED INPATIENT Admitting Physician: Monico Del Cid Condition: STABLE Referrals: EDGAR BENNETT (PCP) EDGAR MOYER DO September 15, 2020 10:51
[2020-09-15] MEDS ORDERED: VANCOMYCIN PER PHARMACY MC PRN (11:00)
[2020-09-15] MEDS ORDERED: IV NORMAL SALINE 1,000ML 1,000 ML IV ONE ×2 (11:00)
[2020-09-15] MEDS ORDERED: PIPERACILLIN/TAZOBACTAM 4.5 GM in IV NORMAL SALINE 50ML 50 ML IV ONE (11:00)
[2020-09-15] MEDS ORDERED: ACETAMINOPHEN 325 MG TABLET PO ONE (11:00)
[2020-09-15] MEDS ORDERED: PIPERACILLIN/TAZOBACTAM 4.5 GM VIAL IV ONE (11:06)
[2020-09-15] MEDS ORDERED: IV NORMAL SALINE 50ML 50 ML ONE (11:06)
[2020-09-15 11:07] LABS: BASO % 0 % (0-3); EOS # 0.1 x10^3/uL (0.0-0.7); EOS % 1 % (0-3); HEMATOCRIT 26.4 % (36.0-47.0); HEMOGLOBIN 8.4 g/dL (12.0-15.5); LYMPH # 0.3 x10^3/uL (1.0-4.8); LYMPH % 3 % (24-48); MEAN CORPUSCULAR HEMOGLOBIN 26 pg (25-35); MEAN CORPUSCULAR HGB CONC 32 g/dL (31-37); MEAN CORPUSCULAR VOLUME 81 fL (79-100); MONO # 0.5 x10^3/uL (0.0-1.1); MONO % 4 % (0-9); NEUT # 9.8 x10^3uL (1.8-7.7); NEUT % 92 % (31-73); PLATELET COUNT 112 x10^3/uL (140-400); RED BLOOD COUNT 3.24 x10^6/uL (3.50-5.40); RED CELL DISTRIBUTION WIDTH 15.1 % (11.5-14.5); WHITE BLOOD COUNT 10.7 x10^3/uL (4.0-11.0)
--- NOTE | 2020-09-15 11:18 | RAD ---
Exam Date: 09/15/2020 10:54 AM XR CHEST 1V Indication: Reason: soa / Spl. Instructions: / History: Comparison: August 18, 2020 FINDINGS/ IMPRESSION: The cardiac silhouette is unchanged. Prominent interstitial markings are seen bilaterally suggesting interstitial edema. Bibasilar edema, atelectasis, and/or infiltrates are noted. No appreciable pleura l effusion or pneumothorax. Electronically signed by: Tad Tolliver MD (09/15/2020 11:15 AM) [id number]
[2020-09-15 11:19] LABS: CALCIUM 8.5 mg/dL (8.5-10.1); CREATININE 0.9 mg/dL (0.6-1.0); GFR 63.7; POTASSIUM 3.4 mmol/L (3.5-5.1)
[2020-09-15] MEDS ORDERED: VANCOMYCIN 2 GM in IV NORMAL SALINE 500ML 500 ML IV ONE (11:30)
[2020-09-15 11:32] LABS: ALBUMIN 3.2 g/dL (3.4-5.0); ALBUMIN/GLOBULIN RATIO 0.7 (1.0-1.7); MAGNESIUM 1.4 mg/dL (1.8-2.4); TOTAL BILIRUBIN 0.8 mg/dL (0.2-1.0); TOTAL PROTEIN 7.6 g/dL (6.4-8.2)
[2020-09-15 12:11] LABS: INFLUENZA A PATIENT NEGATIVE (NEGATIVE); INFLUENZA B PATIENT NEGATIVE (NEGATIVE)
[2020-09-15] MEDS ORDERED: MAGNESIUM SULFATE 2GM 50 ML IV ONE (12:15)
--- NOTE | 2020-09-15 12:19 | EKG ---
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
[2020-09-15] MEDS ORDERED: IOHEXOL 350 MG/ML 100 ML VIAL. IV ONE (12:30)
[2020-09-15 13:11] LABS: COLOR,URINE YELLOW
[2020-09-15 13:12] LABS: BACTERIA,URINE 0 /HPF (0-FEW); BILIRUBIN,URINE NEG (NEG); CLARITY,URINE CLEAR; GLUCOSE,URINE NEG (NEG); NITRITE,URINE NEG (NEG); RBC,URINE 0 /HPF (0-2); SQUAMOUS EPITHELIAL CELL,UR MOD /LPF; UROBILINOGEN,URINE 0.2 mg/dL (0.2 mg/dL)
--- NOTE | 2020-09-15 13:46 | RAD ---
CTA Chest with contrast: Clinical History: Reason: soa, r/o pe / Spl. Instructions: OMNI 350 98ML IV, GFR>60 / History: Short ness of breath. Axial helical images of the chest were obtained after the administration of 98 cc of IV Omni 350 and timed appropriately for a pulmonary arterial study. Conventional axial reconstruction was performed in addition to coronal, sagittal and bilateral oblique MIP (maximum intensity projection). This stud y was ordered to detect possible pulmonary embolism. There are no filling defects to suggest pulmonary embolism. There is diffuse emphysematous changes throughout the lungs. There is patchy mixed interstitial and a irspace disease posteriorly in the lungs bilaterally. There is a 11 mm pulmonary nodule left upper lo be abutting the pleura laterally. There are multiple mildly enlarged mediastinal and hilar lymph nodes. The spleen is mildly enlarged. The thoracic aorta appears normal. Impression: 1. No evidence of pulmonary embolism. 2. Mixed interstitial and airspace disease posteriorly. This has increased considerably since 2020 CT. This could be secondary to atypical pneumonia. 3. Mild to moderate worsening lymphadenopathy. Consider sarcoidosis. 1. Mild splenomegaly seen previously. End impression PQRS Compliance Statement: One or more of the following individualized dose reduction techniques were utilized for this examinat ion: 1. Automated exposure control 2. Adjustment of the mA and/or kV according to patient size 3. Use of iterative reconstruction technique Electronically signed by: En Charles III, MD (09/15/2020 1:44 PM) [facility]
[2020-09-15] MEDS ORDERED: DEXAMETHASONE SOD PHOS 10 MG/ML VIAL. IV ONE (16:30)
--- NOTE | 2020-09-15 17:47 | NUR ---
The patient, TORITO URIARTE, 60 y/o, F admitted by RONNIE ARAYA MD, was given written information regarding hospital policies, unit procedures and contact persons. Valuables were checked and VS taken.
[2020-09-15] MEDS ORDERED: PANT20TA58 PO (18:23)
[2020-09-15] MEDS ORDERED: METH-559 PO (18:23)
[2020-09-15] MEDS ORDERED: L.AC1CAP6 PO (18:23)
[2020-09-15 18:45] VITALS: BP 110/75
[2020-09-15 19:00] VITALS: BP 97/68
--- NOTE | 2020-09-15 20:08 | NUR ---
Spoke to Dr. Del Cid regarding home medications and O2 goal; stated to keep SpO2 equal/greater than 89% and titrate O2 accordingly. Other orders as noted in EMAR.
[2020-09-15] MEDS ORDERED: ALBUTEROL SULFATE 2.5 MG/3 ML NEBU. NEB PRN (20:15)
[2020-09-15] MEDS: MONTELUKAST 10 MG TABLET. PO SCH (21:04)
[2020-09-15] MEDS: metFORMIN 500 MG TABLET PO SCH (21:05)
[2020-09-15] MEDS: METHOCARBAMOL 500 MG TABLET PO SCH (21:05)
[2020-09-15 22:26] VITALS: BP 100/65
[2020-09-15] MEDS: HYDROcodone/APAP 10/325 1 TAB TABLET PO PRN (22:40)
[2020-09-15] MEDS ORDERED: RIVA20TA2 PO (23:05)
[2020-09-15] MEDS ORDERED: FURO-69 PO (23:07)
--- NOTE | 2020-09-16 01:44 | NUR ---
Upon assessment of pt, lower RLE noted to be edematous, warm, and tender to touch. Pt c/o intermittent pain in calf on dorsiflexion. Pt stated she takes xarelto that was not on previous medication list. notified; restarted xarelto. No further orders at this time.
[2020-09-16 06:00] VITALS: BP 106/65
[2020-09-16] MEDS: RIVAROXABAN 10 MG TABLET. PO SCH (08:25)
[2020-09-16] MEDS: PANTOPRAZOLE 40 MG TABLET. PO SCH (08:25)
[2020-09-16] MEDS: LACTOBACILLUS RHAMNOSUS GG 1 CAPSULE. PO SCH (08:25)
[2020-09-16] MEDS: metFORMIN 500 MG TABLET PO SCH ×2 (08:25→16:48)
[2020-09-16] MEDS: ATENOLOL 25 MG TABLET PO SCH (08:26)
[2020-09-16] MEDS: CITALOPRAM 20 MG TABLET. PO SCH (08:26)
[2020-09-16] MEDS: FLUTICASONE 50MCG/NASAL SPRAY 16GM BOTTLE. NS SCH (08:26)
[2020-09-16] MEDS: HYDROcodone/APAP 10/325 1 TAB TABLET PO PRN (08:37)
[2020-09-16 11:28] VITALS: BP 120/77
--- NOTE | 2020-09-16 12:29 | HP ---
ADMIT DATE: 09/15/2020 ATTENDING PHYSICIAN: Dr. Del Cid. CHIEF COMPLAINT: Shortness of breath. HISTORY OF PRESENT ILLNESS: The patient is a 60-year-old female admitted with a 2-day history of increasing shortness of breath. She already has supplemental oxygen at night. She had been a heavy smoker up to last summer. She presented to the ED. She has had a dry nonproductive cough. No fever per se. She has not had any recent COVID exposure. A swab is pending. Influenzas were negative. CT of the chest showed no evidence of blood clot; however, she does have posterior basilar infiltrates with a reactive lymph node adenopathy. She is admitted with atypical pneumonia and acute on chronic respiratory failure. Her oxygen saturations were marginal on room air and she required 3 liters to maintain a saturation. PAST MEDICAL HISTORY: Significant for type 2 diabetes, COPD. She had back surgery 2 months ago. Since that time, she had 2 recent hospitalizations with urinary tract infection leading to sepsis syndrome. She was hospitalized at [facility]. She also has type 2 diabetes along with gastroesophageal reflux disease and sinus congestion. CURRENT MEDICATIONS: Include alprazolam, atenolol, Lipitor, Celexa, fluticasone, furosemide, hydrochlorothiazide, hydrocodone, ibuprofen, lactobacillus, metformin, methocarbamol, Singulair, Protonix, and Xarelto. Evidently, she had a DVT associated to a recent hospitalization. She has been on Xarelto for the last several months. FAMILY HISTORY: Noncontributory. SOCIAL HISTORY: She is retired. Her children are grown. No COVID exposure. REVIEW OF SYSTEMS: All other systems reviewed and turned to be negative. PHYSICAL EXAMINATION: When I saw her: GENERAL: This is a pleasant, middle-aged female. INITIAL VITAL SIGNS: Showed a blood pressure of 106/65, her pulse was 98 and regular, temperature 99.0 degrees Fahrenheit, oxygen saturation 92% on 3 liters by nasal cannula. HEENT: Head is without trauma. Pupils are reactive. Sclerae nonicteric. Oropharynx clear. NECK: Supple. No stridor. CARDIOVASCULAR: Showed regular heart tones. No gallop. LUNGS: Bibasilar rales. ABDOMEN: Soft, scaphoid, nontender. EXTREMITIES: Showed 1+ edema. NEUROLOGIC: Focally intact. SKIN: Warm and dry. LABORATORY DATA: Hemoglobin is 8.4 g/dL with a white count of 10,700. Electrolytes unremarkable. Creatinine was 0.9 mg percent. Nonfasting blood sugar 124. BNP was 1400. Cardiac enzymes negative. ASSESSMENT: 1. This 60-year-old female who has atypical pneumonia involving interstitial anatomy of posterior bases of lungs. 2. Acute on chronic respiratory failure requiring more supplemental oxygen. 3. Chronic obstructive pulmonary disease with extensive emphysema. 4. Reactive adenopathy seen on CT scan. 5. Type 2 diabetes. 6. Anemia of chronic disease. 7. Recent back surgery with other hospitalizations for infection. PLAN: 1. Admit to the inpatient unit. 2. Await coronavirus swab. 3. Influenza swab has been negative. 4. Continue empiric Rocephin. 5. Continue some home meds. 6. I will hold off corticosteroids now due to her diabetes and recent infection. 7. Reassurance. 8. Home meds reviewed and simplified. LUDWIG DR: Jessica TID: [id number] CC: RUTH CRAIG
[2020-09-16] MEDS: CETIRIZINE HCL 10 MG TABLET PO SCH (12:54)
[2020-09-16] MEDS: PSEUDOEPHEDRINE 30 MG TABLET. PO SCH ×2 (12:54→20:20)
[2020-09-16] MEDS: ALPRAZolam 0.5 MG TABLET PO PRN ×2 (12:55→21:22)
[2020-09-16 15:50] VITALS: BP 135/87
--- NOTE | 2020-09-16 17:44 | NUR ---
NURSING NOTE PT WAS IN BED THIS AM UPON ASSESSMENT AND MEDICATION ADMINISTRATION. PT A&O. PT C/O HEADACHE AND REQUEST FOR ADDITIONAL SINUS MEDICATION. DR ARAYA ORDER FOR ZYRTEC AND SUDAFED. PT BP LOW, HELD ATENOLOL. TITRATING OXYGEN DOWN TOLERATED PER DR ARAYA TO KEEP O2 ABOVE 90%. PT CURRENTLY ON 1L AT 92%. NIKKO SANCHEZ
[2020-09-16 19:40] VITALS: BP 177/106
[2020-09-16] MEDS: METHOCARBAMOL 500 MG TABLET PO SCH (20:20)
[2020-09-16] MEDS: MONTELUKAST 10 MG TABLET. PO SCH (20:20)
[2020-09-16 23:20] VITALS: BP 134/81
[2020-09-17] MEDS: HYDROcodone/APAP 10/325 1 TAB TABLET PO PRN (05:33)
[2020-09-17 06:08] VITALS: BP 142/85
[2020-09-17] MEDS: metFORMIN 500 MG TABLET PO SCH (08:35)
[2020-09-17] MEDS: PSEUDOEPHEDRINE 30 MG TABLET. PO SCH (08:35)
[2020-09-17] MEDS: CITALOPRAM 20 MG TABLET. PO SCH (08:35)
[2020-09-17] MEDS: LACTOBACILLUS RHAMNOSUS GG 1 CAPSULE. PO SCH (08:35)
[2020-09-17] MEDS: CETIRIZINE HCL 10 MG TABLET PO SCH (08:35)
[2020-09-17] MEDS: PANTOPRAZOLE 40 MG TABLET. PO SCH (08:35)
[2020-09-17] MEDS: RIVAROXABAN 10 MG TABLET. PO SCH (08:35)
[2020-09-17 08:36] VITALS: BP 142/85
[2020-09-17] MEDS: FLUTICASONE 50MCG/NASAL SPRAY 16GM BOTTLE. NS SCH (08:36)
[2020-09-17] MEDS: ATENOLOL 25 MG TABLET PO SCH (08:36)
--- NOTE | 2020-09-17 12:41 | NUR ---
DISCHARGE NOTE Pt discharged today by Dr. Del Cid. Pt verbalized understanding of discharge paperwork and prescriptions. All questions addressed. CC Pt escorted out of hospital via WC by DIRECTOR PAID MED[employer] and entered vehicle with . GCS 15 and VSS upon DC. CC, RN
--- NOTE | 2020-09-17 19:10 | DS ---
DATE OF DISCHARGE: 09/17/2020 ATTENDING PHYSICIAN: Dr. Del Cid. FINAL DISCHARGE DIAGNOSES: 1. Atypical pneumonia, interstitial pneumonia posterior bases of lung. 2. Acute on chronic respiratory failure. 3. Chronic obstructive pulmonary disease. 4. Type 2 diabetes. 5. Anemia of chronic disease. 6. Recent back surgery with hospitalization. HISTORY OF PRESENT ILLNESS: The patient is a 60-year-old female with multiple medical issues. She has had recurrent pulmonary symptoms. She has been referred to see Dr. Vasquez at [place]. She presented with increasing cough, shortness of breath and CT evidence of atypical infiltrate in the posterior bases. PHYSICAL EXAMINATION: Please see the dictated note. PERTINENT LABORATORY AND X-RAY STUDIES: CT of the chest as noted. Hemoglobin 8.4 g, white count 10,700. Nonfasting blood sugar 129. Serology was negative for coronavirus and negative for influenza A and B. Electrolytes; potassium is 3.4 mEq, sodium 135, creatinine 0.9 mg/dL. COURSE IN HOSPITAL: The patient was admitted. She was treated with 3 days of intravenous Rocephin, nebulizer therapy, supplemental oxygen, which was weaned down to her baseline. She did well. Her coronavirus swab was negative. She was afebrile. I felt it was reasonable for her to go home. At this time, I recommended 7 more days of cephalexin 500 mg p.o. t.i.d., Zithromax 500 mg daily and probably a followup CT scan in 2 weeks' time to see if the infiltrates have cleared up. There is further evaluation, which may need to be done certainly a bronchoscopy should be considered. DISCHARGE MEDICATIONS: Her other home meds are unchanged they include the following: She should continue her scheduled alprazolam, atenolol, Lipitor, Celexa, fluticasone, Lasix, hydrocodone p.r.n., metformin, methocarbamol, pantoprazole and Xarelto doses unchanged. She was discharged from our hospital in stable condition with explicit drug and followup care. Total discharge time spent 39 minutes. WILIAM/KVNG DR: Jessica TID: [id number] CC: RUTH CRAIG
[2020-09-17] MEDS ORDERED: ATORVASTATIN CALCIUM 20 MG TABLET PO SCH (21:00)
== END 2020-09-17 12:15 | disposition home or self-care (01) | DRG 196 ==
LOC: ER 10:27 → 1 SOUTH 16:08
PROVIDERS: ADMIT Hospitalist; ATTEND Hospitalist
DX: J84.9 Interstitial pulmonary disease, unspecified (principal); J96.21 Acute and chronic respiratory failure with hypoxia; I10 Essential (primary) hypertension; D63.8 Anemia in other chronic diseases classified elsewhere; E11.9 Type 2 diabetes mellitus without complications; J43.9 Emphysema, unspecified; F32.9 Major depressive disorder, single episode, unspecified; F41.9 Anxiety disorder, unspecified; G47.33 Obstructive sleep apnea (adult) (pediatric); K21.9 Gastro-esophageal reflux disease without esophagitis; M47.9 Spondylosis, unspecified; M48.061 Spinal stenosis, lumbar region without neurogenic claudication; M54.30 Sciatica, unspecified side; R91.1 Solitary pulmonary nodule; R59.0 Localized enlarged lymph nodes; Z20.822 Contact with and (suspected) exposure to COVID-19; Z98.1 Arthrodesis status; Z90.710 Acquired absence of both cervix and uterus; Z87.891 Personal history of nicotine dependence; Z86.711 Personal history of pulmonary embolism; Z86.16 Personal history of COVID-19; Z87.440 Personal history of urinary (tract) infections; Z87.01 Personal history of pneumonia (recurrent); Z86.19 Personal history of other infectious and parasitic diseases
CPT/HCPCS: 36415; 71045; 71275; 80053; 81001; 82550; 82803; 82947; 83605; 83735; 83880; 84484; 85025; 85379; 87040; 87086; 87804; 93005; 96361; 96365; 96366; 96372; J0696; J2543; J3370; J3475; J7040; Q9967; U0003; U0005; 99285-25; J7030

== ENCOUNTER → 2020-09-26 | Outpatient (CLI) | payer OTHER ==
[2020-09-17 08:36] VITALS: BP 142/85
[~2020-09-26] MED LIST changes: -CYAN50008 PO; +CYAN50009 PO; +FURO-69 PO; +L.AC1CAP6 PO; +METH-559 PO; +PANT20TA58 PO; +RIVA20TA2 PO
--- NOTE | 2020-09-26 10:30 | RAD ---
XR CHEST 2V History: Short of air Comparison: CT and radiographs of the chest 09/15/2020. Chest x-ray 05/13/2016. CT chest 01/16/2020 Technique: PA and lateral chest radiographs. Findings: The lungs are adequately inflated. There are diffusely increased interstitial opacities. No significa nt progression from comparisons. No pleural effusion or pneumothorax. Cardiomediastinal silhouette an d pulmonary vasculature are within normal limits. Postsurgical changes from posterior spinal fusion i n the lumbar spine. No acute osseous abnormality. Soft tissues are unremarkable. Impression: 1. Diffuse increased interstitial opacities most likely represents chronic interstitial lung disease . Superimposed acute infection cannot be excluded in the appropriate clinical setting. Electronically signed by: Hans Middleton MD (09/26/2020 10:27 AM) [facility]
== END ==
LOC: RAD 09:41
PROVIDERS: ATTEND Physician Assistant Medical
DX: J84.9 Interstitial pulmonary disease, unspecified (principal)
CPT/HCPCS: 71046